=== PATIENT | male | born 1980 | race Caucasian/White ===

== ENCOUNTER 2018-09-10 11:31 | Emergency (ER) | payer SELFPAY ==
--- NOTE | 2018-09-10 12:34 | RAD ---
Exam: 2 views right clavicle History fall. Pain. Trauma FINDINGS: Mildly displaced obliquely oriented right clavicle fracture. IMPRESSION: Right clavicle fracture.
--- NOTE | 2018-09-10 12:34 | CT ---
CT Brain WO Con: 09/10/2018 11:46 AM CLINICAL HISTORY: Posttraumatic pain, fall. COMPARISON: None. FINDINGS: Hemorrhage: None. Ventricular system: Normal in size and morphology for the patient's age. Cerebral parenchyma: Normal Midline shift: None. Mass: No mass effect. Calvarium: Normal. Visualized Paranasal sinuses: Clear. IMPRESSION: No acute intracranial abnormalities.
--- NOTE | 2018-09-10 12:41 | CT ---
Exam: CT cervical spine without contrast HISTORY: Trauma. Pain. COMPARISON: None FINDINGS: No craniocervical dissociation. Appropriate alignment of the lateral masses of C1 and C2. Intact odon toid process Appropriate alignment of the facets. Soft tissue neck structures: No mass, lymphadenopathy or hematoma. No prevertebral soft tissue swelli ng. Upper mediastinum and lung apices: Unremarkable Central spinal canal: Neural foramina and central spinal canal are patent. Evaluation is limited by t echnique Vertebral bodies: Cervical spine vertebral body height is maintained. No fracture. Straightening of normal cervical lordosis may be due to patient position, muscle spasm or cervical co llar. Current study does not assess for ligamentous injury. IMPRESSION: 1. No cervical spine fracture 2. Straightening of normal cervical lordosis as detailed above. If there is concern for ligamentous injury, consider MRI.
== END 2018-09-10 13:11 | disposition home or self-care (01) ==
LOC: BURERS 11:31
DX: S42.021A Displaced fracture of shaft of right clavicle, initial encounter for closed fracture (principal); F17.210 Nicotine dependence, cigarettes, uncomplicated; V89.2XXA Person injured in unspecified motor-vehicle accident, traffic, initial encounter
CPT/HCPCS: 70450; 72125; G0390